=== PATIENT | female | born 1990 | race African-American/Black ===

== ENCOUNTER 2017-02-21 09:05 | Emergency (ER) | payer MEDICAID ==
[~2017-02-21] VITALS: Ht 172.7 cm; Wt 147.4 kg
[2017-02-21 09:13] VITALS: BP 196/120
[2017-02-21] MEDS ORDERED: ORETIC25 MG PO (09:18)
[2017-02-21] MEDS ORDERED: NORVASC10 MG PO (09:18)
--- NOTE | 2017-02-21 09:23 | NUR ---
PATIENT AMBULATED TO BED 5 AT THIS TIME.
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
--- NOTE | 2017-02-21 09:57 | NUR ---
ER MD DR IBARRA EVALUATING PT AT BEDSIDE
[2017-02-21] MEDS ORDERED: DIAZEPAM PFS 10 MG/2 ML SYR IM ONE (10:00)
[2017-02-21] MEDS ORDERED: fentaNYL 0.05 MG/ML VIAL IM ONE (10:00)
--- NOTE | 2017-02-21 10:00 | NUR ---
Patient appears to be resting comfortably in bed. Respirations even and unlabored.WILL CONTINUE TO MONITOR
[2017-02-21 10:56] VITALS: BP 176/116
--- NOTE | 2017-02-21 10:56 | NUR ---
Patient discharged with BP 176/116 BUT DENIES HEADACHE OR DIZINESS;ER MD DR IBARRA NOTIFIED,MD AWARE. Written and verbal after care instructions given and explained. Patient alert, oriented and verbalized understanding of instructions. Ambulatory with steady gait. All questions addressed prior to discharge. ID band removed. Patient advised to follow up with PMD. Rx of VALIUM given. Patient educated on indication of medication including possible reaction and side effects. Opportunity to ask questions provided and answered.
== END 2017-02-21 10:56 | disposition home or self-care (01) ==
LOC: MED 09:05
DX: M54.5 Low back pain (principal); E11.9 Type 2 diabetes mellitus without complications; I10 Essential (primary) hypertension; F17.200 Nicotine dependence, unspecified, uncomplicated; Z88.0 Allergy status to penicillin; Z88.5 Allergy status to narcotic agent; Z88.6 Allergy status to analgesic agent
CPT/HCPCS: 81002; 81025; 82948; 96372; 99284; J3010; J3360

== ENCOUNTER 2022-04-19 20:26 | Emergency (ER) | payer MEDICAID ==
[~2022-04-19] VITALS: Ht 172.7 cm; Wt 135.6 kg
[~2022-04-19 20:26] MED LIST: AMLO10TA PO; HYDR-4004 PO
[2022-04-19 20:37] VITALS: BP 209/88
--- NOTE | 2022-04-19 20:44 | NUR ---
PT AMBULATED TO BED [address] [facility]
--- NOTE | 2022-04-19 20:48 | NUR ---
31 YO F BIB CARE AMB FROM HOME W C/O OF ABD PAIN X 1 DAY S/P GALLBLADDER REMOVAL SURGERY ON SUNDAY. PAIN 10, -V/D, + NAUSEA. A/OX4, GCS-15; UNSTEADY AMBULATION; UNLABORED BREATHING. DENIES FEVER, COUGH, CP, OR SOB. PT SEATED IN BED WITH HOB RAISED, BED IN LOWEST POSITION, AND RAILS UP X2. PMH: HTN, DM, GALLBLADDER REMOVAL ALLERGY PCN, CODINE, TORADOL
[2022-04-19] MEDS ORDERED: fentaNYL citrate 0.05 MG/ML VIAL IVP ONE ×2 (20:50→22:10)
[2022-04-19] MEDS ORDERED: ONDANSETRON 4 MG/2 ML VIAL IVP ONE ×2 (20:55→22:10)
--- NOTE | 2022-04-19 21:05 | NUR ---
INSTRUCTOR BRIDGE AT BEDSIDE COLLECTING BLOOD SAMPLE
[2022-04-19 21:19] LABS: APPEARANCE,URINE CLEAR (CLEAR); BASOPHILS # (AUTO) 0.1 K/uL (0.00-0.22); BASOPHILS % (AUTO) 0.9 % (0.0-2.0); BILIRUBIN,URINE NEGATIVE (NEGATIVE); BLOOD, URINE NEGATIVE (NEGATIVE); COLOR,URINE YELLOW (YELLOW); EOSINOPHILS # (AUTO) 0.2 K/uL (0-0.4); EOSINOPHILS % (AUTO) 2.4 % (0.0-4.0); HEMOGLOBIN 10.7 g/dL (12.0-16.0); LEUKOCYTE ESTERASE ,URINE NEGATIVE (NEGATIVE); LYMPHOCYTES # (AUTO) 3.4 K/uL (2.5-16.5); MEAN CORPUSCULAR HEMOGLOBIN 23 pg (27-31); MEAN CORPUSCULAR HGB CONC 32 g/dL (33-37); MEAN CORPUSCULAR VOLUME 73.6 fL (80-94); MONOCYTES # (AUTO) 0.8 K/uL (0.8-1.0); MONOCYTES % (AUTO) 8.3 % (1.7-9.3); NEUTROPHILS # (AUTO) 5.2 K/uL (1.8-7.7); NEUTROPHILS % (AUTO) 53.4 % (42.2-75.2); NITRITE, URINE NEGATIVE (NEGATIVE); PH,URINE 6.5 (5.0-9.0); PLATELET COUNT (AUTO) 330 K/uL (140-450); RED BLOOD CELL COUNT(AUTO) 4.62 MIL/uL (4.20-5.40); RED CELL DISTRIBUTION WIDTH 17.4 % (11.6-13.7); UGLUCOSE 3+ (NEGATIVE); WHITE BLOOD COUNT (AUTO) 9.8 K/uL (4.8-10.8)
[2022-04-19 22:08] LABS: ANION GAP 11.9 (8-16); CARBON DIOXIDE 25.5 mmol/L (21-32); CREATININE 0.9 mg/dL (0.6-1.3); POTASSIUM 3.4 mmol/L (3.5-5.1)
[2022-04-19 22:14] LABS: TOTAL BILIRUBIN 0.2 mg/dL (0.0-1.0)
[2022-04-19] MEDS ORDERED: NACL 0.9% 1,000 ML IV ONE (22:45)
[2022-04-20] MEDS ORDERED: fentaNYL citrate 0.05 MG/ML VIAL IVP ONE (00:15)
--- NOTE | 2022-04-20 01:25 | NUR ---
ER MD AT BEDSIDE DISCUSSING PT RESULTS
[2022-04-20] MEDS ORDERED: oxyCODONE/APAP 5/325 MG 1 TAB TAB PO ONE (01:30)
[2022-04-20] MEDS ORDERED: ACET-512 PO (02:05)
[2022-04-20 03:06] VITALS: BP 143/84
--- NOTE | 2022-04-20 03:08 | NUR ---
Patient discharged with v/s stable. Written and verbal after care instructions given and explained. Patient alert, oriented and verbalized understanding of instructions. Ambulatory with steady gait. All questions addressed prior to discharge. ID band removed. Patient advised to follow up with PMD. Rx of OXYCODONE-ACETAMINOPHEN (10-325) given. Patient educated on indication of medication including possible reaction and side effects. Opportunity to ask questions provided and answered. A/OX4, VSS, UNLABORED BREATHING, AMBULATORY, AND CALM DEMEANOR.
== END 2022-04-20 03:02 | disposition home or self-care (01) ==
LOC: MED 20:26
DX: G89.18 Other acute postprocedural pain (principal); E11.9 Type 2 diabetes mellitus without complications; I10 Essential (primary) hypertension; F17.200 Nicotine dependence, unspecified, uncomplicated; Z88.0 Allergy status to penicillin; Z88.5 Allergy status to narcotic agent; Z88.8 Allergy status to other drugs, medicaments and biological substances; Z90.49 Acquired absence of other specified parts of digestive tract; Z90.89 Acquired absence of other organs
CPT/HCPCS: 36415; 74177; 80053; 81003; 81025; 83690; 85025; 96361; 96374; 96375; 96376; 99285; J2405; J3010; J7030; Q9967